=== PATIENT | male | born 1955 ===

== ENCOUNTER 2018-04-15 00:55 | Emergency (ER) | payer BC ==
[~2018-04-15] VITALS: Ht 182.9 cm; Wt 93.6 kg
[2018-04-15 01:02] VITALS: TEMP 36.4; Ht 182.9 cm; Wt 93.6 kg
[2018-04-15 01:05] VITALS: O2SAT 99
--- NOTE | 2018-04-15 01:05 | EMERGENCY ROOM VISIT NOTE ---
History Report prepared by Alisha: Nilda August Under the Supervision of: Dr. Aleksandr Hoang M.D. First contact with patient: 00:58 Chief Complaint: ABDOMINAL PAIN Stated Complaint: ABDOMINAL PAIN History of Present Illness The patient is a 62 year old male who presents to the Emergency Room with complaints of waxing and waning abdominal pain that started 5 hours ago. The patient rates his pain a 8/10 in severity. The patient reports he was dinner this evening and the pain came after. He states he has never had pain like this before. He denies abdominal surgery or a history of heart issues. The patient did not take any medications for his pain. The patient notes he is nauseous. Source of History: patient Onset: 5 hours ago Position: abdomen Symptom Intensity: 8/10 Timing: waxes/wanes Associated Symptoms: + nausea Review of Systems See HPI for pertinent positives & negatives. A total of 10 systems reviewed and were otherwise negative. Past Medical & Surgical Stomach problems. Family History Heart disease Social History Smoking Status: Never Smoker Smokeless Tobacco Use: No Alcohol Use: occasionally Drug Use: none Housing Status: lives with family Occupation Status: employed Current/Historical Medications Scheduled Ascorbic Acid (Vitamin C), 1 TAB PO DAILY Cholecalciferol (Vitamin D3), 1 TAB PO DAILY Echinacea (Echinacea), 1 TAB PO DAILY Fexofenadine Hcl (Kathi Allergy), 180 MG PO DAILY Finasteride (Proscar), 5 MG PO DAILY Multivitamin (Multivitamin), 1 TAB PO DAILY Tadalafil (Cialis), 5 MG PO 3XWK Allergies Coded Allergies: POLLEN (Verified Allergy, Intermediate, ITCHY, WATERY EYES, SNEEZING, CONGESTION, 04/15/18) Physical Exam Vital Signs Date Time Temp Pulse Resp B/P (MAP) Pulse Ox O2 Delivery O2 Flow Rate FiO2 04/15/18 07:00 98 149/91 96 04/15/18 05:05 95 04/15/18 05:04 95 23 149/96 96 Room Air 04/15/18 03:19 94 144/87 94 Room Air 04/15/18 02:05 82 18 169/99 99 Room Air 04/15/18 01:06 85 04/15/18 01:05 99 Room Air 04/15/18 01:02 36.4 88 18 205/109 99 Room Air Physical Exam GENERAL: Awake, alert, well-appearing, in no acute distress HENT: Normocephalic, atraumatic. Oropharynx unremarkable. EYES: Normal conjunctiva. Sclera non-icteric. NECK: Supple. No nuchal rigidity. FROM. No JVD. RESPIRATORY: Clear to auscultation. CARDIAC: Regular rate, normal rhythm. Extremities warm and well perfused. Pulses equal. ABDOMEN: Soft, non-distended. No tenderness to palpation. No rebound or guarding. No masses. RECTAL: Deferred. MUSCULOSKELETAL: Chest examination reveals no tenderness. The back is symmetrical on inspection without obvious abnormality. There is no CVA tenderness to palpation. No joint edema. LOWER EXTREMITIES: Calves are equal size bilaterally and non-tender. No edema. No discoloration. NEURO: Normal sensorium. No sensory or motor deficits noted. SKIN: No rash or jaundice noted. Medical Decision & Procedures ER Provider Diagnostic Interpretation: 1 VIEW CHEST X-RAY interpreted by me: No evidence of pneumonia, pneumothorax, or congestion. CT ABD/PELVIS IV AND ORAL CONT CLINICAL HISTORY: Epigastric pain COMPARISON STUDY: None. TECHNIQUE: Following the IV administration of 116 mL of Optiray-320, CT scan of the abdomen and pelvis was performed from the lung bases to the proximal femurs. Images are reviewed in the axial, sagittal, and coronal planes. IV contrast was administered without complication. A dose lowering technique was utilized adhering to the principles of ALARA. CT DOSE: 595.82 mGy.cm FINDINGS: Lower chest: There are minimal dependent atelectatic changes present. Liver: There is a 47 mm lobulated right lobe hepatic cyst. There is perihepatic fluid present. Gallbladder: Unremarkable. Spleen: Normal in size and attenuation. Pancreas: Unremarkable. Adrenal glands: Unremarkable. Kidneys: There is a to small to characterize 6 mm right renal hypodensity likely representing a cyst. Bowel: There are borderline dilated fluid-filled small bowel loops within the right upper quadrant. The stomach is distended. There is mild infiltration of the mesentery. There are associated soft tissue nodules in the mesentery, the largest of which measures 2 cm. There is is no evidence of acute appendicitis. There is no evidence of acute diverticulitis. Peritoneum: There is no free intraperitoneal air. There is low volume ascites. There are right sided mesenteric nodules. There is a small fat-containing umbilical hernia. Vasculature: The abdominal aorta is normal in course and caliber. Adenopathy: Other than the nonspecific mesenteric nodules, there is no pathologic adenopathy. Pelvic viscera: The bladder, and pelvic viscera are unremarkable. Skeletal structures: There is bilateral L5 spondylolysis. There is a grade 1 spondylolisthesis of L5 on S1. There is marked disc space narrowing at the L5-S1 level. IMPRESSION: 1. 47 mm lobulated right lobe hepatic cyst, abutting the capsular surface of the liver 2. Perihepatic fluid, and low volume ascites 3. Distended stomach. Fluid-filled prominent right upper quadrant small bowel loops without evidence of a discrete transition 4. Right-sided mesenteric nodules measuring up to 2 cm. There is a suggestion of a surrounding desmoplastic reaction, and therefore a carcinoid tumor must be considered within the differential. Further follow-up evaluation of this abnormality is recommended. Electronically signed by: Gilbert Whitmore M.D. 04/15/2018 7:18 AM Dictated Date/Time: 04/15/2018 7:08 AM Laboratory Results 04/15/18 01:06 Red Blood Count 5.00, Mean Corpuscular Volume 90.2, Mean Corpuscular Hemoglobin 32.2, Mean Corpuscular Hemoglobin Concent 35.7, Mean Platelet Volume 10.2, Neutrophils (%) (Auto) 74.3, Lymphocytes (%) (Auto) 15.2, Monocytes (%) (Auto) 6.9, Eosinophils (%) (Auto) 3.0, Basophils (%) (Auto) 0.4, Neutrophils # (Auto) 7.94, Lymphocytes # (Auto) 1.63, Monocytes # (Auto) 0.74, Eosinophils # (Auto) 0.32, Basophils # (Auto) 0.04 04/15/18 01:06 Test 04/15/18 01:06 04/15/18 02:45 White Blood Count 10.69 K/uL (4.8-10.8) Red Blood Count 5.00 M/uL (4.7-6.1) Hemoglobin 16.1 g/dL (14.0-18.0) Hematocrit 45.1 % (42-52) Mean Corpuscular Volume 90.2 fL (80-100) Mean Corpuscular Hemoglobin 32.2 pg (25-34) Mean Corpuscular Hemoglobin Concent 35.7 g/dl (32-36) Platelet Count 224 K/uL (130-400) Mean Platelet Volume 10.2 fL (7.4-10.4) Neutrophils (%) (Auto) 74.3 % Lymphocytes (%) (Auto) 15.2 % Monocytes (%) (Auto) 6.9 % Eosinophils (%) (Auto) 3.0 % Basophils (%) (Auto) 0.4 % Neutrophils # (Auto) 7.94 K/uL (1.4-6.5) Lymphocytes # (Auto) 1.63 K/uL (1.2-3.4) Monocytes # (Auto) 0.74 K/uL (0.11-0.59) Eosinophils # (Auto) 0.32 K/uL (0-0.5) Basophils # (Auto) 0.04 K/uL (0-0.2) RDW Standard Deviation 42.0 fL (36.4-46.3) RDW Coefficient of Variation 12.9 % (11.5-14.5) Immature Granulocyte % (Auto) 0.2 % Immature Granulocyte # (Auto) 0.02 K/uL (0.00-0.02) Anion Gap 7.0 mmol/L (3-11) Est Creatinine Clear Calc Drug Dose 77.1 ml/min Estimated GFR () 75.0 Estimated GFR (Non- 64.7 BUN/Creatinine Ratio 16.1 (10-20) Calcium Level 9.1 mg/dl (8.5-10.1) Total Bilirubin 0.4 mg/dl (0.2-1) Direct Bilirubin < 0.1 mg/dl (0-0.2) Aspartate Amino Transf (AST/SGOT) 34 U/L (15-37) Alanine Aminotransferase (ALT/SGPT) 46 U/L (12-78) Alkaline Phosphatase 56 U/L (45-117) Total Creatine Kinase 321 U/L (39-308) Creatine Kinase MB 3.1 ng/ml (0.5-3.6) Creatine Kinase MB Ratio 1.0 (0-3.0) Troponin I < 0.015 ng/ml (0-0.045) Total Protein 7.9 gm/dl (6.4-8.2) Albumin 4.1 gm/dl (3.4-5.0) Lipase 147 U/L (73-393) Urine Color YELLOW Urine Appearance CLEAR (CLEAR) Urine pH 6.0 (4.5-7.5) Urine Specific Traer 1.024 (1.000-1.030) Urine Protein NEG (NEG) Urine Glucose (UA) NEG (NEG) Urine Ketones NEG (NEG) Urine Occult Blood NEG (NEG) Urine Nitrite NEG (NEG) Urine Bilirubin NEG (NEG) Urine Urobilinogen NEG (NEG) Urine Leukocyte Esterase NEG (NEG) Labs reviewed by ED physician. Medications Administered Medications (Trade) Dose Ordered Sig/[place] Route Start Time Stop Time Status Last Admin Dose Admin Hydromorphone HCl (Dilaudid Inj) 0.5 mg NOW STAT IV 04/15/18 01:09 04/15/18 01:11 DC 04/15/18 01:18 0.5 MG Metoclopramide HCl (Reglan Inj) 10 mg NOW STAT IV 04/15/18 01:09 04/15/18 01:11 DC 04/15/18 01:18 10 MG Sodium Chloride 500 ml @ 999 mls/hr Q31M STAT IV 04/15/18 01:09 04/15/18 01:39 DC 04/15/18 01:09 999 MLS/HR Ketorolac Tromethamine (Toradol Inj) 30 mg NOW STAT IV 04/15/18 01:58 04/15/18 02:00 DC 04/15/18 02:05 30 MG Ondansetron HCl (Zofran Inj) 4 mg NOW STAT IV 04/15/18 01:58 04/15/18 02:00 DC 04/15/18 02:05 4 MG Famotidine (Pepcid Tab) 20 mg NOW STAT PO 04/15/18 03:06 04/15/18 03:07 DC 04/15/18 03:14 20 MG Sucralfate (Carafate Tab) 1 gm NOW STAT PO 04/15/18 03:06 04/15/18 03:07 DC 04/15/18 03:14 1 GM Al Hydroxide/Mg Hydroxide (Maalox Susp) 30 ml STK-MED ONCE .ROUTE 04/15/18 03:11 04/15/18 03:12 DC 04/15/18 03:15 30 ML Lidocaine HCl (Viscous Lidocaine 2% Soln) 20 ml STK-MED ONCE .ROUTE 04/15/18 03:11 04/15/18 03:12 DC 04/15/18 03:15 20 ML ECG Per My Interpretation Indication: abdominal pain Rate (beats per minute): 80 Rhythm: normal sinus Findings: other (no ST elevation or depression) ED Course 0102: Past medical records reviewed. The patient was evaluated in room B9. A complete history and physical examination was performed. 0109: Sodium Chloride 500 ml @ 999 mls/hr IV, Reglan Inj 10 mg IV, Dilaudid HCl 0.5 mg IV. Medical Decision Differential diagnosis: Etiologies such as appendicitis, diverticulitis, PUD, biliary pathology, UTI, pancreatitis, obstruction, mesenteric ischemia, aortic pathology, infections, inflammatory bowel disease, renal colic, as well as others were entertained. This is a 62-year-old male who presents emergency department with sudden onset of abdominal pain as he was just about to eat. According to his CAT scan the patient appears to have had a cyst that ruptured. 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 He is incredibly hypertensive upon arrival to the emergency department. This came down with Dilaudid. Based on the findings that this patient has I discussed him with his primary care [facility] in [place]. The case was discussed with both the general surgery as well as the emergency department as well as the liver surgeon who readily accepted the patient. I strongly recommended to the patient he be transferred via ambulance however he is adamantly refusing. He is going to go by private vehicle to [facility] for workup of the cyst. Medication Reconcilliation Current Medication List: was personally reviewed by me Impression Primary Impression: Abdominal pain Additional Impression: Liver cyst Scribe Attestation The scribe's documentation has been prepared under my direction and personally reviewed by me in its entirety. I confirm that the note above accurately reflects all work, treatment, procedures, and medical decision making performed by me. Departure Information Dispostion Home / Self-Care Referrals No Doctor, Assigned (PCP) Patient Instructions My [facility] Problem Qualifiers Primary Impression: Abdominal pain Abdominal location: unspecified location Qualified Codes: R10.9 - Unspecified abdominal pain
[2018-04-15] MEDS ORDERED: METOCLOPRAMIDE HCL INJ 5 MG/ML 2 ML VIAL IV STA (01:09)
[2018-04-15] MEDS ORDERED: SODIUM CHLORIDE 0.9% 500ML 500 ML IV STA (01:09)
[2018-04-15] MEDS ORDERED: HYDROmorphone INJ 0.5 MG/0.5 ML SYR IV STA (01:09)
[2018-04-15 01:26] LABS: BASO % 0.4 %; BASO ABS # 0.04 K/uL (0-0.2); EOS ABS # 0.32 K/uL (0-0.5); HEMATOCRIT 45.1 % (42-52); HEMOGLOBIN 16.1 g/dL (14.0-18.0); IG# 0.02 K/uL (0.00-0.02); LYMPH % 15.2 %; LYMPH ABS # 1.63 K/uL (1.2-3.4); MEAN CELL VOLUME 90.2 fL (80-100); MEAN CORPUSCULAR HEMOGLOBIN 32.2 pg (25-34); MEAN CORPUSCULAR HGB CONC 35.7 g/dl (32-36); MEAN PLATELET VOLUME 10.2 fL (7.4-10.4); MONO % 6.9 %; MONO ABS # 0.74 K/uL (0.11-0.59); NEUT % 74.3 %; NEUT ABS # 7.94 K/uL (1.4-6.5); PLATELET COUNT 224 K/uL (130-400); RED CELL DISTRIBUTION WIDTH CV 12.9 % (11.5-14.5); WHITE BLOOD COUNT 10.69 K/uL (4.8-10.8)
[2018-04-15] MEDS ORDERED: MULT-506 PO (01:35)
[2018-04-15] MEDS ORDERED: TADA5TAB11 PO (01:35)
[2018-04-15] MEDS ORDERED: ASCA500 PO (01:35)
[2018-04-15] MEDS ORDERED: ECHI380C2 PO (01:35)
[2018-04-15] MEDS ORDERED: CHOL2000 PO (01:35)
[2018-04-15] MEDS ORDERED: FEXO1TAB49 PO (01:35)
[2018-04-15] MEDS ORDERED: FINA5TAB PO (01:35)
[2018-04-15 01:39] LABS: ALBUMIN 4.1 gm/dl (3.4-5.0); ALKALINE PHOSPHATASE 56 U/L (45-117); ALT/SGPT 46 U/L (12-78); AST/SGOT 34 U/L (15-37); BLOOD UREA NITROGEN 19 mg/dl (7-18); CALCIUM 9.1 mg/dl (8.5-10.1); CARBON DIOXIDE 30 mmol/L (21-32); CKMB 3.1 ng/ml (0.5-3.6); CREATININE 1.21 mg/dl (0.60-1.40); GLUCOSE 107 mg/dl (70-99); LIPASE 147 U/L (73-393); POTASSIUM 3.8 mmol/L (3.5-5.1); SODIUM 140 mmol/L (136-145); TOTAL PROTEIN 7.9 gm/dl (6.4-8.2)
[2018-04-15] MEDS ORDERED: ONDANSETRON INJ 2 MG/ML 2 ML VIAL IV STA (01:58)
[2018-04-15] MEDS ORDERED: KETOROLAC TROMETHAMINE 30 MG/ML VIAL IV STA (01:58)
[2018-04-15] MEDS ORDERED: GI COCKTAIL PO STA (03:06)
[2018-04-15] MEDS ORDERED: SUCRALFATE 1 GM TAB PO STA (03:06)
[2018-04-15] MEDS ORDERED: FAMOTIDINE 20 MG TAB PO STA (03:06)
[2018-04-15] MEDS ORDERED: ALUMINUM/MAGNESIUM SUSP 30 ML UDC ONE (03:11)
[2018-04-15] MEDS ORDERED: LIDOCAINE HCL 2% VISC SOLN 20 ML UDC ONE (03:11)
[2018-04-15] MEDS ORDERED: OPTIRAY 320 IV PRN (03:45)
--- NOTE | 2018-04-15 06:33 | DIAGNOSTIC IMAGING REPORT ---
CHEST ONE VIEW PORTABLE CLINICAL HISTORY: Epigastric pain, nausea, vomiting COMPARISON STUDY: No previous studies for comparison. FINDINGS: The cardiac and mediastinal contours are normal. There is no evidence of focal pulmonary consolidation. There is no evidence of failure. No pleural effusions are visualized.[ No free intraperitoneal air is visualized. IMPRESSION: No active disease in the chest. Electronically signed by: Gilbert Whitmore M.D. 04/15/2018 6:31 AM Dictated Date/Time: 04/15/2018 6:31 AM
[2018-04-15 07:00] VITALS: BP 149/91; PULSE 98; O2SAT 96
--- NOTE | 2018-04-15 07:20 | DIAGNOSTIC IMAGING REPORT ---
CT ABD/PELVIS IV AND ORAL CONT CLINICAL HISTORY: Epigastric pain COMPARISON STUDY: None. TECHNIQUE: Following the IV administration of 116 mL of Optiray-320, CT scan of the abdomen and pelvis was performed from the lung bases to the proximal femurs. Images are reviewed in the axial, sagittal, and coronal planes. IV contrast was administered without complication. A dose lowering technique was utilized adhering to the principles of ALARA. CT DOSE: 595.82 mGy.cm FINDINGS: Lower chest: There are minimal dependent atelectatic changes present. Liver: There is a 47 mm lobulated right lobe hepatic cyst. There is perihepatic fluid present. Gallbladder: Unremarkable. Spleen: Normal in size and attenuation. Pancreas: Unremarkable. Adrenal glands: Unremarkable. Kidneys: There is a to small to characterize 6 mm right renal hypodensity likely representing a cyst. Bowel: There are borderline dilated fluid-filled small bowel loops within the right upper quadrant. The stomach is distended. There is mild infiltration of the mesentery. There are associated soft tissue nodules in the mesentery, the largest of which measures 2 cm. There is is no evidence of acute appendicitis. There is no evidence of acute diverticulitis. Peritoneum: There is no free intraperitoneal air. There is low volume ascites. There are right sided mesenteric nodules. There is a small fat-containing umbilical hernia. Vasculature: The abdominal aorta is normal in course and caliber. Adenopathy: Other than the nonspecific mesenteric nodules, there is no pathologic adenopathy. Pelvic viscera: The bladder, and pelvic viscera are unremarkable. Skeletal structures: There is bilateral L5 spondylolysis. There is a grade 1 spondylolisthesis of L5 on S1. There is marked disc space narrowing at the L5-S1 level. IMPRESSION: 1. 47 mm lobulated right lobe hepatic cyst, abutting the capsular surface of the liver 2. Perihepatic fluid, and low volume ascites 3. Distended stomach. Fluid-filled prominent right upper quadrant small bowel loops without evidence of a discrete transition 4. Right-sided mesenteric nodules measuring up to 2 cm. There is a suggestion of a surrounding desmoplastic reaction, and therefore a carcinoid tumor must be considered within the differential. Further follow-up evaluation of this abnormality is recommended. Electronically signed by: Gilbert Whitmore M.D. 04/15/2018 7:18 AM Dictated Date/Time: 04/15/2018 7:08 AM
== END 2018-04-15 07:01 | disposition short-term general hospital (02) ==
LOC: C.EDB 00:58
DX: R10.9 Unspecified abdominal pain (principal); K76.89 Other specified diseases of liver; Z79.899 Other long term (current) drug therapy